=== PATIENT | male | born 1955 | race Caucasian/White ===

== ENCOUNTER 2022-01-21 05:56 | Emergency (ER) | payer MEDICARE, OTHER, SELFPAY ==
--- NOTE | 2022-01-21 06:16 | ED_ITS ---
HPI - General Adult General Chief complaint: Urogenital-Male Stated complaint: Unable to urinate Time Seen by Provider: 01/21/22 06:16 History of Present Illness HPI narrative: 66-year-old gentleman with a history of BPH, gastroesophageal reflux, arthritis who presents with inability to void for the last 18 hours and increasing abdominal pain. Denies fever, cough, chills, vomiting, diarrhea. No chest pain, palpitations, headaches, acute neurologic findings. Notes that he has not taken any recent new medications including [id number] antihistamines or cold medications. Does note that he is typically on Flomax 0.4 mg b.i.d. and has missed the last 3 doses. Related Data Allergies Allergy/AdvReac Type Severity Reaction Status Date / Time No Known Drug Allergies Allergy Verified 01/21/22 06:29 Review of Systems Review of Systems Narrative: Remainder of complete review of systems is otherwise unremarkable except for that included in the HPI. Patient History Medical History (Updated 01/21/22 @ 06:41 by Nicole Scott MD) BPH (benign prostatic hyperplasia) Chronic GERD Social History Smoking Status: Never smoker Exam Initial Vital Signs Initial Vital Signs: Vital Signs Temperature 97.2 F L 01/21/22 06:25 Pulse Rate 82 01/21/22 06:25 Respiratory Rate 23 01/21/22 06:25 Blood Pressure 171/92 H 01/21/22 06:25 Pulse Oximetry 96 01/21/22 06:25 Oxygen Delivery Method 01/21/22 06:25 General: Alert appropriate in no acute distress Respiratory: Able to speak in full sentences, no obvious respiratory distress Abdominal: Moderately distended without rebound or guarding, hypoactive bowel tones Skin: No obvious rashes, warm and dry Neurologic: Grossly intact no obvious asymmetries or abnormalities Psych: appropriate insight and affect, cooperative Course Orders Ordered: Discontinued Medications Lidocaine HCl (Lidocaine 2% (Glydo) 6 Ml Gel) 6 ml TOP NOW ONE Stop: 01/21/22 06:12 Last Admin: 01/21/22 06:29 Dose: 6 ml Documented By: EB Vital Signs Vital signs: Vital Signs - 8 hr 01/21/22 06:25 Temperature 97.2 F L Pulse Rate 82 Respiratory Rate 23 Blood Pressure 171/92 H Pulse Oximetry 96 Oxygen Delivery Method Room Air Medical Decision Making MDM Narrative Medical decision making narrative: 66-year-old gentleman with known BPH missed 3 doses of his Flomax and has been unable to void for the last 18 hours with increasing pain. Dorsey catheter is placed without significant complication but notes by nursing staff of significantly enlarged prostate. Total of 900 cc of clear urine is drained with significant relief of pain and immediate normalization of blood pressure. He given a dose of Flomax in the emergency department. He has enough medication at home to resume his usual b.i.d. schedule. He has been seen by [facility] in the past regarding his BPH. Will ask him to follow-up with them sometime next week to have the catheter removed and discussed his BPH. He is interested in the idea of surgery and has multiple questions that would be very appropriate for his urologist. At this point there is no evidence of infection or alternative explanation for his pain and he is safe for discharge home. Discharge Plan Departure Patient Disposition: Home Clinical Impression: Acute retention of urine Instructions: How to Care for Your Dorsey Catheter -- Male Activity Restrictions/Additional Instructions: Thank you for coming in today It looks like your Flomax is more important than you had realized. Dorsey catheter was placed in the emergency department with at least 600 cc of urine immediately drained. Please schedule an appointment with [facility] for next week to have the Dorsey catheter removed and discuss additional options for your BPH with episode of acute urinary retention. You had some very appropriate questions regarding surgery and I would encourage you to make sure that you ask these of the urologist. If you find that you are getting worse or develop any new symptoms, please feel free to return to the emergency department for further evaluation.
[2022-01-21 06:25] VITALS: BP 171/92; PULSE 82; RESP 23; TEMP 36.2; O2SAT 96; BMI 34.2
[2022-01-21] MEDS: LIDOCAINE 2% (GLYDO) 6 ML GEL TOP (06:29)
--- NOTE | 2022-01-21 06:36 | PC.NURSE ---
Dorsey catheter placed, pt reported near-immediate relief.
[2022-01-21] MEDS: TAMSULOSIN 0.4 MG CAPSULE PO (06:53)
[2022-01-21 06:54] VITALS: BP 140/83
== END 2022-01-21 06:58 | disposition home or self-care (01) ==
PROVIDERS: Emergency Provider Emergency Medicine
DX: R33.8 Other retention of urine (principal)
CPT/HCPCS: 99283; 99284